=== PATIENT | male | born 1955 | race Caucasian/White ===

== ENCOUNTER 2017-10-10 05:32 | Day surgery (SDC) | payer OTHER ==
[~2017-10-10] VITALS: Ht 167.6 cm; Wt 107.3 kg
[2017-10-10] MEDS ORDERED: SODIUM CHLORIDE 0.9% 1,000 ML IV ONE ×2 (05:40→06:00)
[2017-10-10] MEDS ORDERED: MORP15 PO (06:15)
[2017-10-10] MEDS ORDERED: BUPR150T8 PO (06:15)
[2017-10-10] MEDS ORDERED: HYD50 PO (06:15)
[2017-10-10] MEDS ORDERED: GABA-531 PO ×2 (06:15)
[2017-10-10] MEDS ORDERED: ARIP10TA8 PO (06:15)
[2017-10-10] MEDS ORDERED: CLON.5 PO (06:15)
[2017-10-10] MEDS ORDERED: PRED5 PO (06:15)
[2017-10-10] MEDS ORDERED: DULO60CA44 PO (06:15)
[2017-10-10] MEDS ORDERED: BACL10TA PO (06:15)
[2017-10-10] MEDS ORDERED: LORA10TA7 PO (06:15)
[2017-10-10] MEDS ORDERED: TOPI100T37 PO (06:15)
[2017-10-10] MEDS ORDERED: MIDAZOLAM HCL 2 MG/2 ML VIAL ONE (07:28)
[2017-10-10] MEDS ORDERED: FentaNYL CITRATE-PF 100 MCG/2 ML VIAL ONE (07:28)
[2017-10-10] MEDS ORDERED: MethylPREDNISolone SOD SUCC 125 MG/2 ML VIAL IVP ONE (08:30)
[2017-10-10] MEDS ORDERED: MethylPREDNISolone SOD SUCC 125 MG/2 ML VIAL ONE (08:45)
[2017-10-10] MEDS ORDERED: BENZOCAINE 20% 50 MCG/SPRAY 57 GM TP ONE (12:00)
[2017-10-10] MEDS ORDERED: LIDOCAINE HCL 2% 30 ML JELLY TP ONE (12:00)
[2017-10-10] MEDS ORDERED: ALBUTEROL SULFATE 2.5 MG/0.5 ML NEB SOLUTION NEB ONE (12:00)
[2017-10-10] MEDS ORDERED: OXYGEN THERAPY IH SCH (20:00)
== END 2017-10-10 10:10 | disposition home or self-care (01) ==
LOC: SURGERY 05:32
PROVIDERS: ATTEND Internal Medicine Critical Care Medicine
DX: J38.4 Edema of larynx (principal); B37.0 Candidal stomatitis; J44.9 Chronic obstructive pulmonary disease, unspecified; F32.9 Major depressive disorder, single episode, unspecified; K21.9 Gastro-esophageal reflux disease without esophagitis; M19.90 Unspecified osteoarthritis, unspecified site; Z88.0 Allergy status to penicillin; Z98.42 Cataract extraction status, left eye; Z98.41 Cataract extraction status, right eye; Z98.890 Other specified postprocedural states
CPT/HCPCS: 31623; 31624; 71010; 87015 ×2; 87070; 87077; 87101; 87147; 87186; 87205; 87220; 88108; 88312; 93005; 94640; J2250; J2930; J3010; J7030

== ENCOUNTER 2019-03-26 05:38 | Day surgery (SDC) | payer MEDICARE, OTHER ==
[~2019-03-26] VITALS: Ht 170.2 cm; Wt 101.4 kg
[~2019-03-26 05:38] MED LIST: ARIP10TA8 PO; BACL10TA PO; BUPR150T8 PO; CLON.5 PO; DULO60CA44 PO; GABA-531 PO; HYD50 PO; LORA10TA7 PO; MORP15 PO; PRED5 PO; SODIUM CHLORIDE 0.9% 1,000 ML IV ONE; TOPI100T37 PO
[2019-03-26] MEDS ORDERED: ALBUTEROL SULFATE 2.5 MG/0.5 ML NEB SOLUTION NEB ONE (05:39)
[2019-03-26] MEDS ORDERED: LIDOCAINE 4% 50 ML SOLUTION TP ONE (05:39)
[2019-03-26] MEDS ORDERED: LIDOCAINE 2% 30 ML JELLY TP ONE (05:39)
[2019-03-26] MEDS ORDERED: BENZOCAINE 20% 50 MCG/SPRAY 57 GM TP ONE ×2 (05:39)
[2019-03-26] MEDS ORDERED: LIDOCAINE 2% 11 ML JELLY TP ONE (05:39)
[2019-03-26] MEDS ORDERED: FentaNYL CITRATE-PF 100 MCG/2 ML VIAL ONE (06:35)
[2019-03-26] MEDS ORDERED: MIDAZOLAM HCL 2 MG/2 ML VIAL ONE (06:35)
[2019-03-26] MEDS ORDERED: SODIUM CHLORIDE 0.9% 1,000 ML IV ONE (07:00)
[2019-03-26] MEDS ORDERED: MethylPREDNISolone SOD SUCC 125 MG/2 ML VIAL ONE (08:57)
[2019-03-26] MEDS ORDERED: MethylPREDNISolone SOD SUCC 125 MG/2 ML VIAL IVP ONE (09:00)
[2019-03-26] MEDS ORDERED: OXYGEN THERAPY IH SCH (20:00)
== END 2019-03-26 12:15 | disposition home or self-care (01) ==
LOC: SURGERY 05:38
PROVIDERS: ATTEND Internal Medicine Critical Care Medicine
DX: J38.4 Edema of larynx (principal); B37.0 Candidal stomatitis; J39.8 Other specified diseases of upper respiratory tract; J44.9 Chronic obstructive pulmonary disease, unspecified; I10 Essential (primary) hypertension; J98.09 Other diseases of bronchus, not elsewhere classified; Z88.0 Allergy status to penicillin; Z98.890 Other specified postprocedural states; Z98.42 Cataract extraction status, left eye; Z98.41 Cataract extraction status, right eye; Z87.01 Personal history of pneumonia (recurrent); M19.90 Unspecified osteoarthritis, unspecified site
CPT/HCPCS: 31623; 31624; 71045; 87015; 87070; 87077; 87101; 87186; 87205; 87206; 87220; 88108; 88312; 93005; J2250; J2930; J3010; J7030

== ENCOUNTER 2021-10-24 05:46 | Day surgery (SDC) | payer MEDICARE, OTHER ==
[~2021-10-24] VITALS: Ht 172.7 cm; Wt 107.7 kg
[~2021-10-24 05:46] MED LIST changes: +ARIP10TA38 PO; -ARIP10TA8 PO; +CLON-592 PO; -CLON.5 PO; -DULO60CA44 PO; +DULO60CA98 PO; +GABA-1181 PO; -GABA-531 PO; +PRED-409 PO; -PRED5 PO; -SODIUM CHLORIDE 0.9% 1,000 ML IV ONE
[2021-10-24] MEDS ORDERED: SODIUM CHLORIDE 0.9% 1,000 ML ONE (06:28)
[2021-10-24] MEDS ORDERED: SODIUM CHLORIDE 0.9% 1,000 ML IV ONE (07:00)
[2021-10-24 07:02] LABS: COVID AG,FIA SOURCE NASOPHARYNGEAL
[2021-10-24] MEDS ORDERED: MIDAZOLAM HCL 5 MG/ML VIAL ONE (07:19)
[2021-10-24] MEDS ORDERED: FentaNYL CITRATE PF 100 MCG/2 ML VIAL ONE (07:19)
[2021-10-24 07:49] LABS: GLUCOMETER DEV NAME(LOC) SDS.; GLUCOSE,POINT OF CARE 99 MG/DL (70-110)
[2021-10-24] MEDS ORDERED: MethylPREDNISolone SOD SUCC 125 MG/2 ML VIAL ONE (08:52)
[2021-10-24] MEDS ORDERED: MethylPREDNISolone SOD SUCC 125 MG/2 ML VIAL IVP ONE (09:00)
[2021-10-24] MEDS ORDERED: OXYGEN THERAPY IH SCH (20:00)
== END 2021-10-24 11:50 | disposition home or self-care (01) ==
LOC: SURGERY 05:46
PROVIDERS: ATTEND Internal Medicine Critical Care Medicine
DX: J38.4 Edema of larynx (principal); B37.0 Candidal stomatitis; J44.9 Chronic obstructive pulmonary disease, unspecified; Z88.0 Allergy status to penicillin; I10 Essential (primary) hypertension; K21.9 Gastro-esophageal reflux disease without esophagitis; F32.9 Major depressive disorder, single episode, unspecified; M19.90 Unspecified osteoarthritis, unspecified site; Z98.890 Other specified postprocedural states; Z79.899 Other long term (current) drug therapy; Z87.01 Personal history of pneumonia (recurrent); E78.00 Pure hypercholesterolemia, unspecified
CPT/HCPCS: 31623; 31624; 71045; 82962; 87015; 87070; 87077; 87101; 87186; 87205; 87206; 87220; 87426; 88112; 88184; 88185; 88312; C9803; J2250; J2930; J3010; J7030